=== PATIENT | female | born 1935 | race Caucasian/White ===

== ENCOUNTER 2016-11-02 17:45 | Emergency (ER) | payer MEDICARE ==
[~2016-11-02] VITALS: Ht 162.6 cm; Wt 59.4 kg
[~2016-11-02 17:45] MED LIST: BRIMONIDINE OD; CALCARB PO; CALCITONIN INH; COQ-10 PO; ENAL5TAB PO; FERR325T OR; FLAG500T OR; FLON0.05 INH; INDAPAMIDE PO; LANO0.1211 PO; LEVA500T OR; LOPR50TA PO; LOZOL PO; MULTIVIT OR; NEUR600T PO; OMEGA 3 FISH OIL PO; OMEP20TA7 PO; POTA-77 PO; PRIL20CA OR; VIT D PO; VITA500T PO; XALATAN OPHT OU
[2016-11-02] MEDS ORDERED: ACETAMINOPHEN TAB 650MG DOSE (2X325MG) PO ONE (18:30)
[2016-11-02 18:46] LABS: BASO % 0.3 % (0.0-1.0); EOS # 0.1 K/mm3 (0.0-0.50); EOS % 1.3 % (0.0-3.0); LARGE UNSTAINED CELL # 0.1 K/mm3 (0.0-0.4); LARGE UNSTAINED CELL % 0.9 % (0.0-4.0); LYMPH # 1.4 K/mm3 (1.5-4.5); LYMPH % 14.4 % (24.0-44.0); MEAN CORPUSCULAR HEMOGLOBIN 32.3 pg (27.0-33.0); MEAN CORPUSCULAR HGB CONC 35.1 g/dl (32.0-36.5); MEAN CORPUSCULAR VOLUME 92.1 fl (80.0-96.0); MONO # 0.6 K/mm3 (0.0-0.8); MONO % 6.6 % (0.0-5.0); NEUTROPHILS # 7.1 K/mm3 (1.8-7.7); NEUTROPHILS % 76.5 % (36.0-66.0); PLATELET COUNT, AUTOMATED 171 k/mm3 (150-450); RED CELL DISTRIBUTION WIDTH 12.6 % (11.5-14.5); WHITE BLOOD COUNT 9.2 K/mm3 (4.0-10.0)
--- NOTE | 2016-11-02 18:57 | REP ---
Clinical: Trauma . Findings: Age-related atrophy and microvascular ischemic changes are appreciated. The ventricles and sulci are symmetric. Serna-white differentiation is maintained. There is no evidence for acute intracranial hemorrhage, mass/mass effect, pathology or infarction. No extra-axial fluid collection. Calvarium is intact. Paranasal sinuses and mastoid air cells are clear. Impression: Age related atrophy and microvascular ischemic changes. No acute intracranial trauma, hemorrhage, infarction, or mass/mass effect. Signed by Josse Ramos MD 11/02/2016 06:48 P
[2016-11-02 19:27] LABS: ANION GAP 7 MEQ/L (8-16); BLOOD UREA NITROGEN 16 MG/DL (7-18); CALCIUM LEVEL 7.6 MG/DL (8.8-10.2); CARBON DIOXIDE LEVEL 32 MEQ/L (21-32); CHLORIDE LEVEL 96 MEQ/L (98-107); CREATININE FOR GFR 0.88 MG/DL (0.55-1.02); GLOMERULAR FILTRATION RATE > 60.0 (>32); GLUCOSE, FASTING 162 MG/DL (83-110); POTASSIUM SERUM 3.1 MEQ/L (3.5-5.1); SODIUM LEVEL 135 MEQ/L (136-145)
[2016-11-02] MEDS ORDERED: KEFL500C7 PO (20:39)
[2016-11-02] MEDS ORDERED: CEPHALEXIN 500 MG CAP PO ONE (21:00)
[2016-11-02] MEDS ORDERED: POTASSIUM CHLORIDE 10 MEQ SR TABLET PO ONE (21:00)
[2016-11-02 21:09] VITALS: BP 136/75
[2016-11-03] MEDS ORDERED: DEPA250T32 PO (01:22)
[2016-11-03] MEDS ORDERED: BETA2500 PO (01:22)
[2016-11-03] MEDS ORDERED: INDA125TA PO (01:22)
[2016-11-03] MEDS ORDERED: LATA5OPD OU (01:22)
[2016-11-03] MEDS ORDERED: ENAL5TAB PO (01:22)
[2016-11-03] MEDS ORDERED: KEFL500C7 PO (01:22)
[2016-11-03] MEDS ORDERED: CO Q1CAP PO (01:22)
[2016-11-03] MEDS ORDERED: GABA600T PO (01:22)
[2016-11-03] MEDS ORDERED: DIGO0.127 PO (01:22)
[2016-11-03] MEDS ORDERED: CYCL10TA PO (01:22)
[2016-11-03] MEDS ORDERED: FISH100049 PO (01:22)
[2016-11-03] MEDS ORDERED: BRIM1OPD OU (01:22)
[2016-11-03] MEDS ORDERED: OMEP20CA3 PO (01:22)
[2016-11-03] MEDS ORDERED: POTA99TA PO (01:22)
[2016-11-03] MEDS ORDERED: ALPH100C PO (01:22)
[2016-11-03] MEDS ORDERED: ASPI81TA21 PO (01:22)
[2016-11-03] MEDS ORDERED: METO50TA2 PO (01:22)
--- NOTE | 2016-11-03 07:23 | REP ---
Clinical: Trauma. Technique: Frontal view of the pelvis with neutral and frog lateral views of the right hip. Findings: Evidence of prior fixation involving the lumbosacral spine and pelvis. No acute fracture dislocation. Hip joints demonstrate symmetric age-related changes. Impression: Age-related changes. No acute fracture or dislocation identified. Signed by Josse Ramos MD 11/03/2016 07:15 A
== END 2016-11-02 21:11 | disposition home or self-care (01) ==
LOC: EDBD → M ED 18:58
DX: S70.01XA Contusion of right hip, initial encounter (principal); S00.03XA Contusion of scalp, initial encounter; W01.198A Fall on same level from slipping, tripping and stumbling with subsequent striking against other object, initial encounter; Y92.094 Garage of other non-institutional residence as the place of occurrence of the external cause; Y93.89 Activity, other specified; Y99.8 Other external cause status; E87.6 Hypokalemia; R30.0 Dysuria; E11.9 Type 2 diabetes mellitus without complications; E78.9 Disorder of lipoprotein metabolism, unspecified; G47.30 Sleep apnea, unspecified; Z79.899 Other long term (current) drug therapy; Z79.82 Long term (current) use of aspirin; Z91.018 Allergy to other foods; Z91.09 Other allergy status, other than to drugs and biological substances; Z85.3 Personal history of malignant neoplasm of breast

== ENCOUNTER 2016-11-02 22:59 | Observation (INO) | payer MEDICARE ==
[~2016-11-02] VITALS: Ht 162.6 cm; Wt 61.1 kg
[~2016-11-02 22:59] MED LIST changes: +BRIMONIDINE 0.1% OPHTH SOLN 5 ML OU SCH; +KEFL500C17 PO
[2016-11-03] VITALS (9 sets, daily range): BP systolic 101–156; BP diastolic 57–81
[2016-11-03] MEDS ORDERED: ACETAMINOPHEN TAB 650MG DOSE (2X325MG) PO PRN (00:45)
[2016-11-03] MEDS ORDERED: ONDANSETRON 4MG/2ML VIAL (J2405) IV PRN (00:45)
[2016-11-03] MEDS ORDERED: POTA99TA PO (01:22)
[2016-11-03] MEDS ORDERED: ENAL5TAB PO (01:22)
[2016-11-03] MEDS ORDERED: INDA125TA PO (01:22)
[2016-11-03] MEDS ORDERED: BRIM1OPD OU (01:22)
[2016-11-03] MEDS ORDERED: LATA5OPD OU (01:22)
[2016-11-03] MEDS ORDERED: GABA600T PO (01:22)
[2016-11-03] MEDS ORDERED: CYCL10TA PO (01:22)
[2016-11-03] MEDS ORDERED: FISH100049 PO (01:22)
[2016-11-03] MEDS ORDERED: ALPH100C PO (01:22)
[2016-11-03] MEDS ORDERED: CO Q100C PO (01:22)
[2016-11-03] MEDS ORDERED: OMEP20CA3 PO (01:22)
[2016-11-03] MEDS ORDERED: ASPI81TA21 PO (01:22)
[2016-11-03] MEDS ORDERED: KEFL500C17 PO (01:22)
[2016-11-03] MEDS ORDERED: BETA2500 PO (01:22)
[2016-11-03] MEDS ORDERED: DIGO0.127 PO (01:22)
[2016-11-03] MEDS ORDERED: DEPA250T32 PO (01:22)
[2016-11-03] MEDS ORDERED: METO50TA7 PO (01:22)
[2016-11-03] MEDS: NS 1,000 ML IV SCH ×3 (02:45→22:30)
--- NOTE | 2016-11-03 04:13 | HPEPDOC ---
General Date of Admission November 02, 2016 at 23:33 Primary Care Physician: RENEE CHRISTIE MD [facility] Attending Physician: JOSEPH DUBOIS MD Chief Complaint The patient is a 81-year-old female admitted with a reason for visit of Vasovagal Near Syncope. Source: Patient, RN notes reviewed, Old records Exam Limitations: No limitations Timing/Duration: This evening Associated Symptoms: Cough (nonproductive), Headaches (frontal), Shortness of breath (orthopnea) History of Present Illness Ms. Reyes is an 81-year-old female who presents to [facility]'s emergency Department with near syncope. Past medical history significant for hypertension, gastroesophageal reflux disease, history of atrial fibrillation, migraine, neuropathy, glaucoma, osteoarthritis, history of breast cancer. Patient was previously evaluated in the emergency department earlier this evening secondary to a fall. Patient reports that she was attempting to close the garage door and had pulled on the rope to pull the garage door down and it broke causing her to fall to the ground. She states that she hit her head, but did not lose consciousness. She felt "stunned". Reports that her hip was bruised and that her head was sore. Presented to the emergency department at that time and eventually a right hip x-ray was performed which was negative. Patient was discharged from the emergency department and returned home. Once arriving home patient was unloading the car and describes "walking in a fog". States that she couldn't navigate and felt that her "brain was full of clouds " . Initially thought it was because she had hit her head and then she had concerns about a stroke. Reports that she could hear what people were saying around her, but could not respond. Her called 911. During that time her neighbor, who is a synthetic filament spinner, came over and evaluated patient. Patient subsequently presented to the emergency department for the second time. Review of systems is positive for the following: frontal headache, chronic blurry vision, sinus pressure which is new, nonproductive cough, orthopnea, constipation, chronic back pain, and joint pain. Besides review of systems listed above all other review of systems are negative. Hospitalist service was consulted and patient was admitted for further medical management. Home Medications Scheduled (Co Q-10) 100 Mg Cap, 100 MG PO DAILY, (Reported) (Beta Carotene) 25,000 Unit Cap, 25,000 UNIT PO DAILY, (Reported) Aspirin (Aspir-Low) 81 Mg Tab, 81 MG PO DAILY, (Reported) Brimonidine Tartrate 0.1% (Alphagan P) 100 Drop/5 Ml Soln, 1 DROP OU BID, ( Reported) Cyclobenzaprine HCl (Cyclobenzaprine HCl) 10 Mg Tab, 10 MG PO TID, (Reported) Digoxin (Digox) 0.125 Mg Tab, 0.125 MG PO DAILY, (Reported) Divalproex Sodium (Depakote) 250 Mg Tab, 250 MG PO BID, (Reported) Enalapril Maleate (Enalapril Maleate) 5 Mg Tab, 5 MG PO DAILY, (Reported) Fish Oil (Fish Oil 1000 mg) 1 Cap Cap, 1 CAP PO DAILY, (Reported) Gabapentin (Gabapentin) 600 Mg Tab, 600 MG PO QID, (Reported) Indapamide (Indapamide) 1.25 Mg Tab, 1.25 MG PO DAILY, (Reported) Latanoprost (Latanoprost) 50 Drop/2.5 Ml Soln, 1 DROP OU QHS, (Reported) Lipoic Acid (Thioctic Acid) (Alpha Lipoic Acid) 100 Mg Cap, 100 MG PO DAILY, ( Reported) Metoprolol Tartrate (Metoprolol Tartrate) 50 Mg Tab, 50 MG PO DAILY, (Reported) Omeprazole (Omeprazole) 20 Mg Cap, 20 MG PO DAILY, (Reported) Allergies Coded Allergies: Nitrates, Organic (Verified Allergy, Unknown, 11/02/16) Nitrofurantoin (Verified Allergy, Unknown, 11/02/16) Papaya Enzyme (Verified Allergy, Unknown, 11/02/16) Statins (Verified Allergy, Unknown, 11/02/16) TAPE (Verified Allergy, Unknown, SURGICAL TAPE, 11/02/16) Past Medical History Medical History 1. Hypertension 2. Gastroesophageal reflux disease 3. History of atrial fibrillation 4. Migraine 5. Neuropathy 6. Glaucoma 7. Osteoarthritis 8. History of breast cancer Surgical History 1. Spinal surgeries 2. Double mastectomy, 2002 3. Total hysterectomy, age 49 4. Colonoscopy 5. 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 Dyspnea, Edema Gastrointestinal: Reports: Constipation, Denies: Nausea, Vomiting, Abdominal Pain, Diarrhea, Melena, Hematochezia Genitourinary: Denies: Dysuria, Frequency, Incontinence, Hematuria, Retention Hematologic: Denies: Bruising Musculoskeletal: Reports: Back Pain, Joint Pain Neurological: Denies: Numbness Physical Examination General Exam: Positive: Alert, Cooperative, No Acute Distress Eye Exam: Positive: PERRLA, Conjunctiva & lids normal, EOMI, Negative: Sclera icteric, Ptosis ENT Exam: Positive: Atraumatic, Mucous membr. moist/pink, Pharynx Normal, Tongue Midline, Nares Patent, Negative: Pharyngeal Edema Neck Exam: Positive: Supple, Other (without carotid bruits), Negative: JVD, thyromegaly, Lymphadenopathy Chest Exam: Positive: Clear to auscultation, Normal air movement Heart Exam: Positive: Rate Normal, Regular Rhythm, Normal S1, Normal S2, Negative: Gallops, Murmurs, Rubs Telemetry: Positive: No significant arrhythmia Abdomen Exam: Positive: BS Hypoactive, Soft, Negative: Tenderness, Hepatospenomegaly, Mass Extremity Exam: Positive: Normal pulses, Negative: Clubbing, Cyanosis, Edema, Tenderness, Swelling Skin Exam: Positive: Nl turgor and temperature, Negative: Rash, Lesion Neuro Exam: Positive: Strength at 5/5 X4 ext, Cranial Nerves 3-12 NL Vital Signs Vital Signs Date Time Temp Pulse Resp B/P (MAP) Pulse Ox O2 Delivery O2 Flow Rate FiO2 11/03/16 02:24 63 156/75 (102) 64 139/81 (100) 75 109/71 (84) 11/03/16 01:50 96.7 20 96 Room Air Height (in): 64 Weight (kg): 61.1 BMI (kg): 23.1 Laboratory Data Labs 24H Laboratory Tests 2 11/02/16 23:24: Total Creatine Kinase 163, Creatine Kinase MB 2.2, Creatine Kinase MB Relative Index 1.34, Troponin I 0.02, Valproic Acid (Depakene) Level 52.4 Assessment/Plan Ms. Reyes is an 81-year-old female with a past medical history significant for hypertension, gastroesophageal reflux disease, history of atrial fibrillation, migraine, neuropathy, glaucoma, osteoarthritis, history of breast cancer who presents with near syncope likely related to orthostatic hypotension. Plan / VTE VTE Prophylaxis Ordered?: Yes (antiembolic stockings) Plan Plan Near syncope Orthostatic vital signs confirm orthostatic hypotension. Started normal saline at 100mLs per hour. Obtaining cardiac markers, TSH, magnesium. Performing neurological checks and orthostatic vital signs. Obtaining EKG, echocardiogram. Order physical therapy. Obtain Depakote level. Hypertension Continue current home medication regimen with hold parameters. Constipation Start patient on Colace and Dulcolax. Glaucoma Continue patient on her medication regimen. Disposition Admit to: Progressive care unit Anticipated hospitalization: Observation Attending: Dr. Roland IVF: Initiate (NS @ 100 mLs per hour) Diet: Continue Current (no salt added) Activity: Continue Current Therapy: PT Diagnostics: Check Labs, Repeat Labs in AM, Obtain Cultures Anticipated Discharge: Home [facility] November 03, 2016 04:13 JOSEPH DUBOIS MD November 05, 2016 01:00
[2016-11-03 08:40] LABS: BASO % 0.2 % (0.0-1.0); EOS # 0.1 K/mm3 (0.0-0.50); EOS % 1.2 % (0.0-3.0); LARGE UNSTAINED CELL # 0.1 K/mm3 (0.0-0.4); LARGE UNSTAINED CELL % 1.1 % (0.0-4.0); LYMPH % 14.2 % (24.0-44.0); MEAN CORPUSCULAR HEMOGLOBIN 31.9 pg (27.0-33.0); MEAN CORPUSCULAR HGB CONC 34.5 g/dl (32.0-36.5); MEAN CORPUSCULAR VOLUME 92.4 fl (80.0-96.0); MONO # 0.6 K/mm3 (0.0-0.8); MONO % 8.2 % (0.0-5.0); NEUTROPHILS # 5.1 K/mm3 (1.8-7.7); NEUTROPHILS % 75.1 % (36.0-66.0); PLATELET COUNT, AUTOMATED 150 k/mm3 (150-450); RED CELL DISTRIBUTION WIDTH 12.9 % (11.5-14.5); WHITE BLOOD COUNT 6.8 K/mm3 (4.0-10.0)
[2016-11-03 08:51] LABS: ANION GAP 8 MEQ/L (8-16); BLOOD UREA NITROGEN 12 MG/DL (7-18); CALCIUM LEVEL 7.1 MG/DL (8.8-10.2); CARBON DIOXIDE LEVEL 28 MEQ/L (21-32); CHLORIDE LEVEL 98 MEQ/L (98-107); CREATININE FOR GFR 0.78 MG/DL (0.55-1.02); GLOMERULAR FILTRATION RATE > 60.0 (>32); GLUCOSE, FASTING 158 MG/DL (83-110); MAGNESIUM LEVEL 1.8 MG/DL (1.8-2.4); POTASSIUM SERUM 3.2 MEQ/L (3.5-5.1); SODIUM LEVEL 134 MEQ/L (136-145)
--- NOTE | 2016-11-03 08:53 | ECGEPIP ---
Stationary ECG Study [facility] Test Date: 2016-11-03 Pat Name: CASEY CURIEL Department: Room: 0102 Gender: F Blood Bank Worker: LUIS FELIPE : 1935 Requested By: JOSEPH Baker Order Number: [id number] Reading MD: Delores Alvarado Measurements Intervals [place] Rate: 70 P: 5 [place]: 148 QRS: 20 QRSD: 93 T: 15 QT: 410 QTc: 445 Interpretive Statements SINUS RHYTHM LEFT VENTRICULAR HYPERTROPHY AND ST-T CHANGE PRIOR WITH LAE Electronically Signed On 11-03-2016 8:53:24 EDT by Delores Alvarado
[2016-11-03 09:00] LABS: DIGOXIN LEVEL 0.8 NG/ML (0.5-2.0)
[2016-11-03] MEDS: DOCUSATE SODIUM 100 MG CAP PO SCH ×2 (09:35→22:27)
[2016-11-03] MEDS: DIVALPROEX 250 MG TAB PO SCH ×2 (09:36→22:26)
[2016-11-03] MEDS: GABAPENTIN 300 MG CAP PO SCH ×4 (09:36→22:26)
[2016-11-03] MEDS: ASPIRIN 81 MG ENTERIC TAB PO SCH (09:36)
[2016-11-03] MEDS: OMEPRAZOLE 20 MG CAP PO SCH (09:36)
[2016-11-03] MEDS: METOPROLOL TART 50 MG TAB PO SCH (09:37)
[2016-11-03] MEDS: INDAPAMIDE 1.25MG TABLET PO SCH (09:37)
[2016-11-03] MEDS: DIGOXIN 0.125 MG TAB PO SCH (09:37)
[2016-11-03] MEDS: ENALAPRIL MALEATE 5 MG TAB PO SCH (09:37)
[2016-11-03] MEDS: BISACODYL 5 MG TAB PO SCH (09:43)
--- NOTE | 2016-11-03 10:18 | ECGEPIP ---
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
[2016-11-03] MEDS ORDERED: POTASSIUM CHLORIDE 10 MEQ SR TABLET PO ONE ×2 (12:00→14:00)
[2016-11-03] MEDS: BRIMONIDINE 0.1% OPHTH SOLN 5 ML OU SCH ×2 (12:08→22:27)
[2016-11-03] MEDS ORDERED: LATANOPROST 0.005% OPHTH SOLN 2.5 ML OU SCH (21:00)
[2016-11-04] VITALS: BP 134/74
[2016-11-04 04:00] VITALS: BP 148/77
[2016-11-04 08:00] VITALS: BP 145/90
[2016-11-04] MEDS: INDAPAMIDE 1.25MG TABLET PO SCH (08:18)
[2016-11-04] MEDS: ASPIRIN 81 MG ENTERIC TAB PO SCH (08:18)
[2016-11-04] MEDS: DOCUSATE SODIUM 100 MG CAP PO SCH (08:19)
[2016-11-04 08:20] VITALS: BP 145/90
[2016-11-04] MEDS: METOPROLOL TART 50 MG TAB PO SCH (08:20)
[2016-11-04] MEDS: OMEPRAZOLE 20 MG CAP PO SCH (08:20)
[2016-11-04] MEDS: ENALAPRIL MALEATE 5 MG TAB PO SCH (08:20)
[2016-11-04] MEDS: BISACODYL 5 MG TAB PO SCH (08:20)
[2016-11-04] MEDS: DIGOXIN 0.125 MG TAB PO SCH (08:21)
[2016-11-04] MEDS: DIVALPROEX 250 MG TAB PO SCH (08:21)
[2016-11-04] MEDS: GABAPENTIN 300 MG CAP PO SCH ×2 (08:21→14:08)
[2016-11-04] MEDS: BRIMONIDINE 0.1% OPHTH SOLN 5 ML OU SCH (08:21)
[2016-11-04 09:07] LABS: MEAN CORPUSCULAR HEMOGLOBIN 32.3 pg (27.0-33.0); MEAN CORPUSCULAR HGB CONC 34.8 g/dl (32.0-36.5); MEAN CORPUSCULAR VOLUME 92.7 fl (80.0-96.0); WHITE BLOOD COUNT 6.1 K/mm3 (4.0-10.0)
[2016-11-04 09:38] LABS: ALKALINE PHOSPHATASE 46 U/L (45-117); ALT/SGPT 34 U/L (12-78); ANION GAP 8 MEQ/L (8-16); AST/SGOT 25 U/L (15-37); BILIRUBIN,TOTAL 0.4 MG/DL (0.2-1.0); BLOOD UREA NITROGEN 10 MG/DL (7-18); CALCIUM LEVEL 8.3 MG/DL (8.8-10.2); CARBON DIOXIDE LEVEL 29 MEQ/L (21-32); CHLORIDE LEVEL 102 MEQ/L (98-107); GLOMERULAR FILTRATION RATE > 60.0 (>32); GLUCOSE, FASTING 98 MG/DL (83-110); POTASSIUM SERUM 3.8 MEQ/L (3.5-5.1); SODIUM LEVEL 139 MEQ/L (136-145)
[2016-11-04 12:00] VITALS: BP 127/64
[2016-11-04] MEDS ORDERED: ERTAPENEM SODIUM 1 GM in NS MINI-BAG PLUS 50 ML IV SCH (12:00)
--- NOTE | 2016-11-04 14:49 | DS.PDOC ---
Discharge Summary General Date of Admission November 02, 2016 at 23:33 Date of Discharge 11/04/16 Attending Physician: SHAMAR ALVARES MD Discharge Summary PROCEDURES PERFORMED DURING STAY: None. ADMITTING/DISCHARGE DIAGNOSES: 1. Presyncope secondary to orthostatic hypotension 2. Asymptomatic bacteriuria 3. History of atrial fibrillation 4. Migraine 5. Neuropathy 6. Glaucoma 7. Osteoarthritis 8. History of breast cancer 9. Hypertension 10. Gastroesophageal reflux disease COMPLICATIONS/CHIEF COMPLAINT: Vasovagal Near Syncope. HISTORY OF PRESENT ILLNESS/HOSPITAL COURSE: . This 81-year-old female past medical history fibrillation, hypertension who presents after having fallen while trying to close her neurologist or. The patient states that the rope broke and she had a mechanical fall. Patient initially came to the ED and was discharged home with no fractures noted. The patient then started to develop symptoms consistent of orthostatic hypotension. Patient did have positive orthostatics in the ED. Hydrated and tolerated therapy well. Patient was also evaluated by physical therapy and was cleared for discharge with rolling walker. Patient did have asymptomatically bacteriuria with ESBL in the urine, however patient is asymptomatic. Discussed with Dr. Monte who recommends hold off on antibiotics. DISCHARGE MEDICATIONS: Please see below. ALLERGIES: Please see below. PHYSICAL EXAMINATION ON DISCHARGE: Objective: Vitals: (see below) General: No acute distress, laying comfortably in bed. HEENT: Moist mucous membranes. Neck: No JVD or lymphadenopathy Cardiac: RRR, No murmurs Pulm: Clear to auscultation b/l. No wheezing, rhonchi Abd: NT/ND + BS Ext: No edema or cyanosis. LABORATORY DATA: Please see below. IMAGING: PROGNOSIS: Fair ACTIVITY: As tolerated. DIET: As tolerated DISCHARGE PLAN/DISPOSITION: Home with rolling walker DISCHARGE INSTRUCTIONS: 1. F/u with PCP in 1-2 weeks. DISCHARGE CONDITION: Stable. TIME SPENT ON DISCHARGE: Greater than 30 minutes. Vital Signs/I&Os Vital Signs Date Time Temp Pulse Resp B/P (MAP) Pulse Ox O2 Delivery O2 Flow Rate FiO2 11/04/16 12:00 99.5 61 18 127/64 (85) 93 Room Air I&O- Last 24 Hours up to 6 AM 11/04/16 06:00 Intake Total 1880 ml Output Total 1375 ml Balance 505 ml Laboratory Data Labs 24H Laboratory Tests 2 11/03/16 22:34: Total Creatine Kinase 303H, Creatine Kinase MB 3.7H, Creatine Kinase MB Relative Index 1.22, Troponin I < 0.02 11/04/16 08:45: Anion Gap 8, Glomerular Filtration Rate > 60.0, Blood Urea Nitrogen 10, Creatinine 0.60, Sodium Level 139, Potassium Level 3.8, Chloride Level 102, Carbon Dioxide Level 29, Calcium Level 8.3#L, Aspartate Amino Transf (AST/SGOT) 25, Alanine Aminotransferase (ALT/SGPT) 34, Alkaline Phosphatase 46, Total Bilirubin 0.4, Total Protein 6.0L, Albumin 3.0L, Magnesium Level 2.0, Albumin/ Globulin Ratio 1.00 CBC/BMP Laboratory Tests 11/04/16 08:45 Red Blood Count 3.30 L, Mean Corpuscular Volume 92.7, Mean Corpuscular Hemoglobin 32.3, Mean Corpuscular Hemoglobin Concent 34.8, Red Cell Distribution Width 13.0, Calcium Level 8.3 #L, Aspartate Amino Transf (AST/SGOT ) 25, Alanine Aminotransferase (ALT/SGPT) 34, Alkaline Phosphatase 46, Total Bilirubin 0.4, Total Protein 6.0 L, Albumin 3.0 L Discharge Medications Scheduled (Co Q-10) 100 Mg Cap, 100 MG PO DAILY, (Reported) (Beta Carotene) 25,000 Unit Cap, 25,000 UNIT PO DAILY, (Reported) Aspirin (Aspir-Low) 81 Mg Tab, 81 MG PO DAILY, (Reported) Brimonidine Tartrate 0.1% (Alphagan P) 100 Drop/5 Ml Soln, 1 DROP OU BID, ( Reported) Cyclobenzaprine HCl (Cyclobenzaprine HCl) 10 Mg Tab, 10 MG PO TID, (Reported) Digoxin (Digox) 0.125 Mg Tab, 0.125 MG PO DAILY, (Reported) Divalproex Sodium (Depakote) 250 Mg Tab, 250 MG PO BID, (Reported) Enalapril Maleate (Enalapril Maleate) 5 Mg Tab, 5 MG PO DAILY, (Reported) Fish Oil (Fish Oil 1000 mg) 1 Cap Cap, 1 CAP PO DAILY, (Reported) Gabapentin (Gabapentin) 600 Mg Tab, 600 MG PO QID, (Reported) Indapamide (Indapamide) 1.25 Mg Tab, 1.25 MG PO DAILY, (Reported) Latanoprost (Latanoprost) 50 Drop/2.5 Ml Soln, 1 DROP OU QHS, (Reported) Lipoic Acid (Thioctic Acid) (Alpha Lipoic Acid) 100 Mg Cap, 100 MG PO DAILY, ( Reported) Metoprolol Tartrate (Metoprolol Tartrate) 50 Mg Tab, 50 MG PO DAILY, (Reported) Omeprazole (Omeprazole) 20 Mg Cap, 20 MG PO DAILY, (Reported) Allergies Coded Allergies: Nitrates, Organic (Verified Allergy, Unknown, 11/02/16) Nitrofurantoin (Verified Allergy, Unknown, 11/02/16) Papaya Enzyme (Verified Allergy, Unknown, 11/02/16) Statins (Verified Allergy, Unknown, 11/02/16) TAPE (Verified Allergy, Unknown, SURGICAL TAPE, 11/02/16) SHAMAR ALVARES MD November 04, 2016 14:49
[2017-04-08] MEDS ORDERED: DEPA250T32 PO (18:11)
[2017-04-08] MEDS ORDERED: ALPH0.156 OU (18:13)
[2017-04-27] MEDS ORDERED: THIA100TA PO (08:25)
[2017-04-27] MEDS ORDERED: FOLI1TAB4 PO (08:25)
[2017-04-27] MEDS ORDERED: VITMTA PO (08:25)
== END 2016-11-04 14:45 | disposition home or self-care (01) ==
LOC: EDBD 22:59 → M ED 23:32 → EEVIPCON 23:33 → M ED INP 23:33 → M MS4PR 11-03 16:15
PROVIDERS: ADMIT General Practice; ATTEND Internal Medicine
DX: I95.1 Orthostatic hypotension (principal); R78.81 Bacteremia; G43.909 Migraine, unspecified, not intractable, without status migrainosus; G62.9 Polyneuropathy, unspecified; H40.9 Unspecified glaucoma; M19.90 Unspecified osteoarthritis, unspecified site; I48.91 Unspecified atrial fibrillation; Z85.3 Personal history of malignant neoplasm of breast; I10 Essential (primary) hypertension; K21.9 Gastro-esophageal reflux disease without esophagitis; K59.00 Constipation, unspecified; S70.01XA Contusion of right hip, initial encounter; S00.03XA Contusion of scalp, initial encounter; W01.198A Fall on same level from slipping, tripping and stumbling with subsequent striking against other object, initial encounter; Y92.094 Garage of other non-institutional residence as the place of occurrence of the external cause; Y93.89 Activity, other specified; Y99.8 Other external cause status; E87.6 Hypokalemia; R30.0 Dysuria; E11.9 Type 2 diabetes mellitus without complications; E78.9 Disorder of lipoprotein metabolism, unspecified; G47.30 Sleep apnea, unspecified; Z79.899 Other long term (current) drug therapy; Z79.82 Long term (current) use of aspirin; Z88.8 Allergy status to other drugs, medicaments and biological substances; Z91.018 Allergy to other foods; Z91.09 Other allergy status, other than to drugs and biological substances; Z87.440 Personal history of urinary (tract) infections
CPT/HCPCS: 36415; 70450; 73502; 80048; 80053; 80162; 80164; 81001; 82550; 82553; 83735; 84443; 84484; 85025; 85027; 87088; 87186; 93005; 96360; 96361; 97161; 99283; 99284; G0378

== ENCOUNTER → 2016-11-17 | Outpatient (CLI) | payer MEDICARE ==
[~2016-11-17] MED LIST changes: +ALPH100C PO; +ASPI81TA21 PO; +BETA2500 PO; +BRIM1OPD OU; -BRIMONIDINE 0.1% OPHTH SOLN 5 ML OU SCH; +CO Q1CAP PO; +CYCL10TA PO; +DEPA250T32 PO; +DIGO0.127 PO; +FISH100049 PO; +GABA600T PO; +INDA125TA PO; -KEFL500C17 PO; +KEFL500C7 PO; +LATA5OPD OU; +METO50TA2 PO; +OMEP20CA3 PO; +POTA99TA PO
--- NOTE | 2016-11-17 12:22 | REP ---
AP AND LATERAL SKULL, TWO VIEWS: HISTORY: Foreign body. There is no acute fracture or bone lesion. The sinuses are clear. There is no radiopaque foreign body. IMPRESSION: There is no radiopaque foreign body. Signed by Perry Kidd MD 11/17/2016 12:22 P
== END ==
LOC: M LAB 11:08
PROVIDERS: ATTEND Psychiatry & Neurology Neurology
DX: Z01.818 Encounter for other preprocedural examination (principal)

== ENCOUNTER 2017-02-24 15:34 | Inpatient (IN) | payer MEDICARE ==
[~2017-02-24] VITALS: Ht 162.6 cm; Wt 59.3 kg
[~2017-02-24 15:34] MED LIST changes: +CO Q100C PO; -CO Q1CAP PO; +KEFL500C17 PO; -KEFL500C7 PO; -METO50TA2 PO; +METO50TA7 PO
[2017-02-24] MEDS ORDERED: DIVA500T3 PO (16:09)
[2017-02-24] MEDS ORDERED: DEPA250T32 PO (16:09)
[2017-02-24] MEDS ORDERED: OXYB10TA PO (16:09)
[2017-02-24] MEDS ORDERED: CALC600T57 PO (16:09)
[2017-02-24] MEDS ORDERED: POTA99TA PO (16:09)
[2017-02-24 16:48] LABS: BASO % 0.5 % (0.0-1.0); EOS # 0.2 K/mm3 (0.0-0.50); LARGE UNSTAINED CELL # 0.1 K/mm3 (0.0-0.4); LARGE UNSTAINED CELL % 1.8 % (0.0-4.0); LYMPH # 1.4 K/mm3 (1.5-4.5); LYMPH % 18.6 % (24.0-44.0); MEAN CORPUSCULAR HEMOGLOBIN 31.5 pg (27.0-33.0); MEAN CORPUSCULAR HGB CONC 34.4 g/dl (32.0-36.5); MEAN CORPUSCULAR VOLUME 91.5 fl (80.0-96.0); MONO # 0.6 K/mm3 (0.0-0.8); MONO % 8.6 % (0.0-5.0); NEUTROPHILS # 5.1 K/mm3 (1.8-7.7); NEUTROPHILS % 68.5 % (36.0-66.0); PLATELET COUNT, AUTOMATED 167 k/mm3 (150-450); RED CELL DISTRIBUTION WIDTH 13.9 % (11.5-14.5); WHITE BLOOD COUNT 7.4 K/mm3 (4.0-10.0)
[2017-02-24 16:54] LABS: INR 0.93
[2017-02-24 16:55] LABS: ANION GAP 9 MEQ/L (8-16); BLOOD UREA NITROGEN 22 MG/DL (7-18); CALCIUM LEVEL 8.7 MG/DL (8.8-10.2); CARBON DIOXIDE LEVEL 30 MEQ/L (21-32); CHLORIDE LEVEL 99 MEQ/L (98-107); CREATININE FOR GFR 0.95 MG/DL (0.55-1.02); GLOMERULAR FILTRATION RATE > 60.0 (>32); GLUCOSE, FASTING 91 MG/DL (83-110); POTASSIUM SERUM 3.7 MEQ/L (3.5-5.1); SODIUM LEVEL 138 MEQ/L (136-145)
--- NOTE | 2017-02-24 17:01 | REP ---
CT Head without contrast HISTORY: Infarction COMPARISON: 11/02/2016 Areas of decreased attenuation are present in the periventricular white matter. This represents small-vessel ischemic disease. There is no intraparenchymal hemorrhage, acute infarct, mass or midline shift. The ventricular system and cortical sulci as well as subarachnoid space in the posterior fossa are dilated consistent with moderate volume loss. There is no extra cerebral collection. There is no fracture. The visualized sinuses are clear. IMPRESSION: 1. Small vessel ischemic disease. 2. Moderate volume loss. Signed by Perry Kidd MD 02/24/2017 04:53 P
--- NOTE | 2017-02-24 17:14 | REP ---
Clinical: Cerebrovascular accident . Comparison: 06/08/2013 . Findings: The mediastinum and cardiac silhouette are stable and within normal limits for portable technique. The lung cortez are clear without acute consolidation, effusion, or pneumothorax. Skeletal structures are intact. Evidence for prior right axillary node dissection. Impression: No acute cardiopulmonary process appreciated. Signed by Josse Ramos MD 02/24/2017 05:06 P
[2017-02-24] MEDS ORDERED: LevoFLOXacin IV 500 MG in APPROPRIATE DILUENT 1 EA IV ONE (18:15)
--- NOTE | 2017-02-24 18:32 | ECGEPIP ---
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
[2017-02-24] MEDS ORDERED: ACETAMINOPHEN TAB 650MG DOSE (2X325MG) PO PRN (20:00)
[2017-02-24] MEDS ORDERED: ONDANSETRON 4MG/2ML VIAL (J2405) IV PRN (20:00)
[2017-02-24] MEDS ORDERED: CYCLOBENZAPRINE 10 MG TAB PO PRN (20:00)
--- NOTE | 2017-02-24 20:10 | HPEPDOC ---
General Date of Admission 02/24/17 Attending Physician: INDU HANSON MD Chief Complaint The patient is a 81-year-old female admitted with a reason for visit of WEAK. History of Present Illness 81-year-old female with past medical history of hypertension, GERD, atrial fibrillation not on anticoagulation, and neuropathy presents to the ER with a chief complaint of weakness, and dysuria. The patient states that over the last 3-4 days she has felt generalized weakness and increased frequency in urination , suprapubic tenderness, and dysuria. In addition, the patient states that today she was going to the bathroom, and as per the patient's the patient was unable to get up from the toilet as her knees were weak. According to the staff, the patient's has been concerned about the patient's declining functional status for several months now. Of note, the patient was recently admitted to the hospital back in October 2016 and was discharged home with a rolling walker. However, according to the patient's the patient's functional status has continued to decline, and he also notes that she appears to be more confused and is concerned of worsening dementia. At this time, the patient denies any acute complaints of fevers, chills, chest pain, palpitations , shortness of breath, abdominal pain, or any nausea/vomiting/diarrhea. In the ER, the patient was noted to be afebrile, and without a white blood cell count, however her urinalysis and clinical presentation is suggestive of a urinary tract infection. The patient will be admitted under the hospitalist service for further evaluation and management of urinary tract infection and generalized weakness. Home Medications Scheduled (Co Q-10) 100 Mg Cap, 100 MG PO DAILY, (Reported) (Calcium + D3 600-200 mg-Unit) 1 Tab Tab, 1 TAB PO DAILY, (Reported) Aspirin (Aspir-Low) 81 Mg Tab, 81 MG PO DAILY, (Reported) Brimonidine Tartrate 0.1% (Alphagan P) 100 Drop/5 Ml Soln, 1 DROP OU BID, ( Reported) Digoxin (Digox) 0.125 Mg Tab, 0.125 MG PO DAILY, (Reported) Divalproex Sodium (Depakote) 250 Mg Tab, 250 MG PO QAM, (Reported) Divalproex Sodium (Divalproex Sodium Dr) 500 Mg Tab, 500 MG PO QHS, (Reported) Enalapril Maleate (Enalapril Maleate) 5 Mg Tab, 5 MG PO DAILY, (Reported) Fish Oil (Fish Oil 1000 mg) 1 Cap Cap, 1 CAP PO DAILY, (Reported) Gabapentin (Gabapentin) 600 Mg Tab, 600 MG PO QID, (Reported) Indapamide (Indapamide) 1.25 Mg Tab, 1.25 MG PO DAILY, (Reported) Latanoprost (Latanoprost) 50 Drop/2.5 Ml Soln, 1 DROP OU QHS, (Reported) Metoprolol Tartrate (Metoprolol Tartrate) 50 Mg Tab, 50 MG PO DAILY, (Reported) Omeprazole (Omeprazole) 20 Mg Cap, 20 MG PO DAILY, (Reported) Oxybutynin Chloride (Oxybutynin Chloride ER) 10 Mg Tab, 10 MG PO QHS, (Reported) Potassium (Potassium) 99 Mg Tab, 99 MG PO BID, (Reported) Scheduled PRN Cyclobenzaprine HCl (Cyclobenzaprine HCl) 10 Mg Tab, 10 MG PO TID PRN for SPASMS , (Reported) Allergies Coded Allergies: Nitrates, Organic (Verified Allergy, Unknown, 02/24/17) Nitrofurantoin (Verified Allergy, Unknown, 02/24/17) Papaya Enzyme (Verified Allergy, Unknown, 02/24/17) Statins (Verified Allergy, Unknown, 02/24/17) TAPE (Verified Allergy, Unknown, SURGICAL TAPE, 02/24/17) Past Medical History Medical History As noted in HPI. Surgical History 1. Spinal surgeries 2. Double mastectomy, 2002 3. Total hysterectomy, age 49 4. Colonoscopy 5. Upper endoscopy Family History Significant Family History: No pertinent family hx Social History * Smoker: Denies Alcohol: Denies Drugs: denies Lives at home with her , ambulates with a rolling walker. Review of Symptoms Other systems 10 point review of systems negative unless otherwise specified in HPI. Physical Examination General Exam: Positive: Alert, Cooperative, No Acute Distress, Other (vision oriented to person, place, but not time) ENT Exam: Positive: Atraumatic, Mucous membr. moist/pink Neck Exam: Negative: JVD Chest Exam: Positive: Clear to auscultation, Normal air movement Heart Exam: Positive: Irregular Rhythm, Normal S1, Normal S2 Telemetry: Positive: Atrial fibrillation Abdomen Exam: Positive: Soft, Negative: Tenderness Extremity Exam: Positive: Swelling (1+ pitting edema lower extremities bilaterally), Negative: Tenderness Vital Signs Vital Signs Date Time Temp Pulse Resp B/P (MAP) Pulse Ox O2 Delivery O2 Flow Rate FiO2 02/24/17 18:55 80 122/72 (89) 02/24/17 18:40 96 02/24/17 15:43 99.1 18 Room Air Laboratory Data Labs 24H Laboratory Tests 2 02/24/17 15:47: White Blood Count 7.4, Red Blood Count 4.93, Hemoglobin 15.5, Hematocrit 45.1, Mean Corpuscular Volume 91.5, Mean Corpuscular Hemoglobin 31.5, Mean Corpuscular Hemoglobin Concent 34.4, Red Cell Distribution Width 13.9, Platelet Count 167, Neutrophils (%) (Auto) 68.5H, Lymphocytes (%) (Auto) 18.6L, Monocytes (%) (Auto) 8.6H, Eosinophils (%) (Auto) 2.0, Basophils (%) (Auto) 0.5 , Neutrophils # (Auto) 5.1, Lymphocytes # (Auto) 1.4L, Monocytes # (Auto) 0.6, Eosinophils # (Auto) 0.2, Basophils # (Auto) 0.0, Large Unclassified Cells % 1.8 , Large Unclassified Cells # 0.1, Prothrombin Time 12.5, Prothromb Time International Ratio 0.93, Activated Partial Thromboplast Time 27.6, Anion Gap 9 , Glomerular Filtration Rate > 60.0, Blood Urea Nitrogen 22H, Creatinine 0.95, Sodium Level 138, Potassium Level 3.7, Chloride Level 99, Carbon Dioxide Level 30, Calcium Level 8.7L, Total Creatine Kinase 216H, Creatine Kinase MB 5.8H, Creatine Kinase MB Relative Index 2.68, Troponin I 0.05 02/24/17 17:01: Bedside Glucose (Misc Panel) 79L 02/24/17 17:39: Urine Appearance CLOUDYH, Urine Color YELLOW, Urine pH 6.0, Urine Specific Hunt 1.011, Urine Protein NEGATIVE, Urine Glucose (UA) NEGATIVE, Urine Ketones NEGATIVE, Urine Urobilinogen 0.2, Urine Bilirubin NEGATIVE, Urine Leukocyte Esterase 3+H, Urine Blood 2+H, Urine Nitrite POSITIVE, Urine WBC (Auto ) TNTCH, Urine RBC (Auto) 10H, Urine Hyaline Casts (Auto) 0, Urine Bacteria ( Auto) 1+H, Urine Squamous Epithelial Cells 0, Urine Sperm (Auto) CBC/BMP Laboratory Tests 02/24/17 15:47 Red Blood Count 4.93, Mean Corpuscular Volume 91.5, Mean Corpuscular Hemoglobin 31.5, Mean Corpuscular Hemoglobin Concent 34.4, Red Cell Distribution Width 13.9 , Neutrophils (%) (Auto) 68.5 H, Lymphocytes (%) (Auto) 18.6 L, Monocytes (%) ( Auto) 8.6 H, Eosinophils (%) (Auto) 2.0, Basophils (%) (Auto) 0.5, Neutrophils # (Auto) 5.1, Lymphocytes # (Auto) 1.4 L, Monocytes # (Auto) 0.6, Eosinophils # (Auto) 0.2, Basophils # (Auto) 0.0, Calcium Level 8.7 L, Total Creatine Kinase 216 H Plan / VTE VTE Prophylaxis Ordered?: Yes Plan Plan Urinary tract infection The patient's urinalysis and clinical presentation consistent with urinary tract infection The patient has been started on Invanz, based on her previous urine culture susceptibilities obtained in October 2016. The patient is afebrile, with a normal white blood cell count We will continue to monitor the patient's clinical condition Generalized weakness, deconditioning It appears the patient's functional status has been declining for several months now The patient's , lives with her at home, and is concerned about his ability to take care of her Physical therapy consulted for functional optimization PFS consulted for possible addition of home services versus need for placement Atrial fibrillation, stable Continue digoxin, metoprolol Patient not on anticoagulation Hypertension, stable Continue current regimen GERD Continue PPI Neuropathy Continue gabapentin DVT Prophylaxis Lovenox SC The patient will be admitted under the service of Dr. Hanson, who will begin to follow the patient on 02/25/17 at 7 AM. JAEL ROGERS MD Feb 24, 2017 20:09
[2017-02-24] MEDS ORDERED: ERTAPENEM SODIUM 1 GM in NS MINI-BAG PLUS 50 ML IV SCH (21:00)
[2017-02-24 22:25] VITALS: BP 144/71
[2017-02-24] MEDS: DIVALPROEX 500 MG TAB PO SCH (23:33)
[2017-02-24] MEDS: BRIMONIDINE 0.1% OPHTH SOLN 5 ML OU SCH (23:34)
[2017-02-24] MEDS: GABAPENTIN 300 MG CAP PO SCH (23:34)
[2017-02-24] MEDS: LATANOPROST 0.005% OPHTH SOLN 2.5 ML OU SCH (23:34)
[2017-02-24] MEDS: oxyBUTYnin *DITROPAN XL* 5 MG TABCR PO SCH (23:35)
[2017-02-24] MEDS: ERTAPENEM SODIUM 1 GM in NS MINI-BAG PLUS 50 ML IV SCH (23:35)
[2017-02-25 06:28] LABS: MEAN CORPUSCULAR HEMOGLOBIN 30.8 pg (27.0-33.0); MEAN CORPUSCULAR HGB CONC 33.1 g/dl (32.0-36.5); MEAN CORPUSCULAR VOLUME 93.1 fl (80.0-96.0); RED CELL DISTRIBUTION WIDTH 14.2 % (11.5-14.5)
[2017-02-25 06:30] LABS: ANION GAP 11 MEQ/L (8-16); BLOOD UREA NITROGEN 19 MG/DL (7-18); CALCIUM LEVEL 8.2 MG/DL (8.8-10.2); CARBON DIOXIDE LEVEL 27 MEQ/L (21-32); CHLORIDE LEVEL 102 MEQ/L (98-107); CREATININE FOR GFR 0.75 MG/DL (0.55-1.02); GLOMERULAR FILTRATION RATE > 60.0 (>32); GLUCOSE, FASTING 81 MG/DL (83-110); POTASSIUM SERUM 3.3 MEQ/L (3.5-5.1); SODIUM LEVEL 140 MEQ/L (136-145)
[2017-02-25] MEDS: GABAPENTIN 300 MG CAP PO SCH ×4 (09:03→21:20)
[2017-02-25] MEDS: OMEGA-3 1050MG CAPSULE PO SCH (09:03)
[2017-02-25] MEDS: INDAPAMIDE 1.25MG TABLET PO SCH (09:04)
[2017-02-25] MEDS: ASPIRIN 81 MG ENTERIC TAB PO SCH (09:04)
[2017-02-25] MEDS: METOPROLOL TART 50 MG TAB PO SCH (09:04)
[2017-02-25] MEDS: OMEPRAZOLE 20 MG CAP PO SCH (09:04)
[2017-02-25] MEDS: ENALAPRIL MALEATE 5 MG TAB PO SCH (09:04)
[2017-02-25] MEDS: DIVALPROEX 250 MG TAB PO SCH (09:05)
[2017-02-25] MEDS: BRIMONIDINE 0.1% OPHTH SOLN 5 ML OU SCH ×2 (09:05→21:21)
[2017-02-25] MEDS: DIGOXIN 0.125 MG TAB PO SCH (09:05)
[2017-02-25] MEDS: ENOXAPARIN 40 MG/0.4 ML SYRINGE (J1650) SC SCH (09:05)
[2017-02-25] MEDS ORDERED: POTASSIUM CHLORIDE 10 MEQ SR TABLET PO ONE (12:45)
[2017-02-25 14:00] VITALS: BP 112/62
--- NOTE | 2017-02-25 16:41 | IPN ---
DATE: 02/25/2017 SUBJECTIVE: This morning, the patient tells me that she is feeling better than she did yesterday. She tells me that she is having less problems with her memory and is less confused. OBJECTIVE: VITAL SIGNS: Temperature 97.0, pulse 54, respiratory rate 18, blood pressure 144/71, O2 saturation 96% on room air. GENERAL: She is a pleasant elderly female laying in bed at a 75 degrees angle, watching television. She does not appear to be in any acute distress whatsoever. She is awake, alert and oriented times three. HEENT: Cranial II through XII are grossly intact. She is wearing reading glasses. She has moist mucous membranes. No elevation of CVP. CARDIOVASCULAR: S1, S2. Regular. She is not bradycardic on my exam. RESPIRATORY: Clear. ABDOMEN: Benign. There is some mild tenderness in the suprapubic area. EXTREMITIES: No clubbing, cyanosis or edema. There is no costovertebral angle (CVA) tenderness. LABORATORY STUDIES: WBC 8.0, hemoglobin 14, platelet count 134. Chemistry panel: Sodium 140, potassium 3.3, chloride 102, bicarbonate 27, BUN 19, creatinine 0.7. Multiple sets of cardiac enzymes are negative. INR is 0.9. Urinalysis is 2+ positive for blood, 3+ positive for leukocyte esterase, 1+ for bacteria and too numerous to count WBCs as well as a few RBCs. No microbiology is drawn. IMAGING: The patient had a chest x-ray that revealed no acute cardiopulmonary process as well as a CT scan of her head which showed small vessel ischemic disease and moderate volume loss. ASSESSMENT AND PLAN: This is an 81-year-old female with metabolic encephalopathy, likely secondary to urinary tract infection. PROBLEMS: 1. Metabolic encephalopathy likely related to urinary tract infection. Her mental status has improved today. Will continue to monitor closely. She seems to be responding quite well to treatment. She is currently on ertapenem IV and based on her previous microbiology culture for extended spectrum beta-lactamase (ESBL), but I will obtain blood culture and urine culture at this time, although the yield may be lower as the patient has received several doses of antibiotics. Fosfomycin is a potential by mouth (p.o.) option as well. 2. Generalized weakness and deconditioning. As per the patient, the patient has had a slow decline over the last several months with what they believe to be dementia. There is concern about ability to take care of her any further. Will continue to monitor her closely and see how she progresses over the next several days if she is well enough to return home, if not would consider potential placement. 3. Atrial fibrillation. She is on metoprolol. Not on any anticoagulation, as per her outpatient providers. She is rate controlled with digoxin and metoprolol. 4. Hypertension. Controlled with metoprolol, indapamide. The patient is on enalapril. 5. Neuropathy. Continue with Neurontin. 6. Chronic back pain. Continue with Flexeril. 7. Overactive bladder. Continue with Ditropan. 8. Gastroesophageal reflux disease. Continue with omeprazole. 9. Deep venous thrombosis (DVT) prophylaxis. The patient is on Lovenox. DISPOSITION: Pending improvement in clinical status. Continue to monitor her progress and physical therapy, home versus long-term.
[2017-02-25] MEDS: ERTAPENEM SODIUM 1 GM in NS MINI-BAG PLUS 50 ML IV SCH (21:00)
[2017-02-25] MEDS: DIVALPROEX 500 MG TAB PO SCH (21:00)
[2017-02-25] MEDS: oxyBUTYnin *DITROPAN XL* 5 MG TABCR PO SCH (21:20)
[2017-02-25] MEDS: LATANOPROST 0.005% OPHTH SOLN 2.5 ML OU SCH (21:21)
[2017-02-25 22:00] VITALS: BP 143/74
[2017-02-26 05:57] LABS: MEAN CORPUSCULAR HEMOGLOBIN 32.1 pg (27.0-33.0); MEAN CORPUSCULAR HGB CONC 35.1 g/dl (32.0-36.5); MEAN CORPUSCULAR VOLUME 91.4 fl (80.0-96.0); WHITE BLOOD COUNT 5.2 K/mm3 (4.0-10.0)
[2017-02-26 06:00] VITALS: BP 137/84
[2017-02-26 06:17] LABS: ANION GAP 7 MEQ/L (8-16); BLOOD UREA NITROGEN 16 MG/DL (7-18); CALCIUM LEVEL 8.1 MG/DL (8.8-10.2); CARBON DIOXIDE LEVEL 31 MEQ/L (21-32); CHLORIDE LEVEL 101 MEQ/L (98-107); CREATININE FOR GFR 0.71 MG/DL (0.55-1.02); GLOMERULAR FILTRATION RATE > 60.0 (>32); GLUCOSE, FASTING 94 MG/DL (83-110); POTASSIUM SERUM 3.7 MEQ/L (3.5-5.1); SODIUM LEVEL 139 MEQ/L (136-145)
[2017-02-26 08:42] VITALS: BP 145/75
[2017-02-26] MEDS ORDERED: INFLUENZA VIRUS VACCINE HIGH DOSE 0.5 ML SYRINGE (90662) IM ONE (09:00)
[2017-02-26] MEDS: DIGOXIN 0.125 MG TAB PO SCH (09:00)
[2017-02-26] MEDS: METOPROLOL TART 50 MG TAB PO SCH (09:00)
[2017-02-26] MEDS: ENOXAPARIN 40 MG/0.4 ML SYRINGE (J1650) SC SCH (10:45)
[2017-02-26] MEDS: OMEPRAZOLE 20 MG CAP PO SCH (10:47)
[2017-02-26] MEDS: OMEGA-3 1050MG CAPSULE PO SCH (10:47)
[2017-02-26] MEDS: INDAPAMIDE 1.25MG TABLET PO SCH (10:47)
[2017-02-26] MEDS: GABAPENTIN 300 MG CAP PO SCH ×4 (10:47→21:35)
[2017-02-26] MEDS: DIVALPROEX 250 MG TAB PO SCH (10:47)
[2017-02-26] MEDS: ASPIRIN 81 MG ENTERIC TAB PO SCH (10:48)
[2017-02-26] MEDS: BRIMONIDINE 0.1% OPHTH SOLN 5 ML OU SCH ×2 (10:54→21:36)
[2017-02-26] MEDS: ENALAPRIL MALEATE 5 MG TAB PO SCH (10:54)
[2017-02-26 14:05] VITALS: BP 145/79
--- NOTE | 2017-02-26 20:23 | IPN ---
DATE: 02/26/2017 SUBJECTIVE: This morning the patient tells me she thinks she is feeling better. Has a little bit more strength than she did yesterday, but she has no fevers, chills, chest pain, shortness of breath. She denies any abdominal pain or dysuria. OBJECTIVE: VITAL SIGNS: Temperature 98, pulse 58, respiratory rate 14, blood pressure (BP) 145/75, oxygen saturation 95% on room air. GENERAL: She is a very pleasant, elderly female sitting up in bed. She is no acute distress. HEENT: She is wearing glasses. She has moist mucous membranes. No elevation in central venous pressure (CVP). She is awake, alert, oriented times three. CARDIOVASCULAR: S1, S2, regular. RESPIRATORY Clear. ABDOMEN: Benign. EXTREMITIES: No clubbing, cyanosis, or edema. There is no suprapubic tenderness today. LABORATORY STUDIES: WBC 5.2, hemoglobin 13.6, platelet count 139. Chemistry panel: Sodium 139, potassium 3.7, chloride 101, bicarbonate 31, BUN 16, creatinine 0.7. Microbiology: Blood cultures are preliminarily negative. Urine culture is pending. No new imaging. ASSESSMENT AND PLAN: This is an 81-year-old female with metabolic encephalopathy, likely secondary to urinary tract infection. 1. Metabolic encephalopathy related to urinary tract infection. It appears to have resolved. She is awake, alert, oriented times three when I am seeing her this morning. She is currently on intravenous (IV) ertapenem based on previous microbiology cultures for extended-spectrum beta lactamase (ESBL). We have obtained blood cultures and urine cultures, although they are after a couple doses of antibiotics, and as such may they have a lower yield. Patient will continue on this. While she is in the hospital, will keep her on IV antibiotics. If she is stable for dispositioning, likely Tuesday, with a dose of fosfomycin. 2. General weakness and deconditioning. Patient has had a slow decline over the last several months from what is thought to be related to dementia. He is concerned about his ability to take care of her. She is concerned about her ability to return home. We will see how she progresses with her resolving metabolic encephalopathy and have her work with physical therapy on Tuesday. Should she not continue to not be able to take care of herself with assistance, she may end up requiring some acute rehabilitation for fdc. 3. Atrial fibrillation. She is on metoprolol and digoxin. She is rate controlled. She is not on any anticoagulation. Will defer to her outpatient providers. 4. Hypertension, controlled with metoprolol and indapamide as well as enalapril. 5. Neuropathy. She is on Neurontin. 6. Chronic back pain. She is on Flexeril. 7. Overactive bladder. She is on Ditropan. 8. Gastroesophageal reflux disease. She is on omeprazole. 9. Deep vein thrombosis (DVT) prophylaxis. She is on Lovenox. DISPOSITION: Pending improvement in her clinical status. Will continue to follow her closely.
[2017-02-26] MEDS: ERTAPENEM SODIUM 1 GM in NS MINI-BAG PLUS 50 ML IV SCH (21:00)
[2017-02-26] MEDS: oxyBUTYnin *DITROPAN XL* 5 MG TABCR PO SCH (21:35)
[2017-02-26] MEDS: DIVALPROEX 500 MG TAB PO SCH (21:36)
[2017-02-26] MEDS: LATANOPROST 0.005% OPHTH SOLN 2.5 ML OU SCH (21:36)
[2017-02-26 22:00] VITALS: BP 147/68
[2017-02-27 06:00] VITALS: BP 142/80
[2017-02-27 07:48] LABS: MEAN CORPUSCULAR HEMOGLOBIN 31.6 pg (27.0-33.0); MEAN CORPUSCULAR VOLUME 90.1 fl (80.0-96.0); RED CELL DISTRIBUTION WIDTH 13.9 % (11.5-14.5); WHITE BLOOD COUNT 5.9 K/mm3 (4.0-10.0)
[2017-02-27 08:08] LABS: ANION GAP 8 MEQ/L (8-16); BLOOD UREA NITROGEN 16 MG/DL (7-18); CALCIUM LEVEL 9.1 MG/DL (8.8-10.2); CARBON DIOXIDE LEVEL 30 MEQ/L (21-32); CHLORIDE LEVEL 102 MEQ/L (98-107); CREATININE FOR GFR 0.67 MG/DL (0.55-1.02); GLOMERULAR FILTRATION RATE > 60.0 (>32); GLUCOSE, FASTING 92 MG/DL (83-110); POTASSIUM SERUM 3.7 MEQ/L (3.5-5.1); SODIUM LEVEL 140 MEQ/L (136-145)
[2017-02-27] MEDS: DIGOXIN 0.125 MG TAB PO SCH (09:00)
[2017-02-27] MEDS: METOPROLOL TART 50 MG TAB PO SCH (09:00)
[2017-02-27] MEDS: DIVALPROEX 250 MG TAB PO SCH (09:14)
[2017-02-27] MEDS: INDAPAMIDE 1.25MG TABLET PO SCH (09:14)
[2017-02-27] MEDS: ENOXAPARIN 40 MG/0.4 ML SYRINGE (J1650) SC SCH (09:15)
[2017-02-27] MEDS: OMEPRAZOLE 20 MG CAP PO SCH (09:15)
[2017-02-27] MEDS: GABAPENTIN 300 MG CAP PO SCH ×4 (09:15→21:43)
[2017-02-27] MEDS: BRIMONIDINE 0.1% OPHTH SOLN 5 ML OU SCH ×2 (09:15→21:42)
[2017-02-27] MEDS: OMEGA-3 1050MG CAPSULE PO SCH (09:15)
[2017-02-27] MEDS: ASPIRIN 81 MG ENTERIC TAB PO SCH (09:15)
[2017-02-27] MEDS: ENALAPRIL MALEATE 5 MG TAB PO SCH (09:32)
--- NOTE | 2017-02-27 13:21 | IPN ---
DATE OF EXAMINATION: 02/27/2017 SUBJECTIVE: The patient tells me she is feeling well. She has no complaints. OBJECTIVE: VITAL SIGNS: Temperature 98.2, pulse 52, respiratory rate 18, blood pressure (BP) 142/80, oxygen saturation 96% on room air. GENERAL: She is a pleasant, elderly female, sitting in a chair. She is no distress. HEENT: She is wearing glasses. Cranial nerves II-XII are grossly intact. She has moist mucous membranes. No elevation in central venous pressure (CVP). CARDIOVASCULAR EXAM: S1, S2, regular. RESPIRATORY EXAM: Is clear. ABDOMEN: Is benign. EXTREMITIES: No clubbing, cyanosis or edema. LABORATORY STUDIES: WBC 5.9, hemoglobin 14, platelet count 143. Chemistry panel: Sodium 140, potassium 3.7, chloride 102, bicarbonate 30, BUN 16, creatinine 0.6. Microbiology: Urine cultures pending. Blood cultures are negative after 48 hours. ASSESSMENT AND PLAN: This is an 81-year-old female with metabolic encephalopathy. PROBLEMS: 1. Metabolic encephalopathy acute on chronic. The patient has chronic memory impairment felt to be related to underlying dementia but that was acutely worse and weakness of late felt to be related to urinary tract infection. Urine cultures currently pending. She is currently on ertapenem IV. She has a history of extended spectrum beta-lactamase (ESBL). We have obtained urine cultures and will await the results. If she is stable for dispositioning, will likely provide her with one dose of fosfomycin prior to her discharge appears to be of rather uncomplicated cystitis. 2. General weakness and deconditioning. Possibly related to progressive dementia versus acute worsening related to her urinary tract infection will treat and have physical therapy re-evaluate her tomorrow and see if she will be well enough in order to return home with her . If not, she may require usp placement. 3. Atrial fibrillation. She is on metoprolol and digoxin with holding parameters. She is not on any anticoagulation. Will defer to her outpatient providers. 4. Hypertension. Controlled with metoprolol, indapamide, as well as enalapril. 5. Neuropathy. She is on Neurontin. 6. Chronic back pain. She is on Flexeril. 7. Overactive bladder. She is on Ditropan. 8. Gastroesophageal reflux disease. She is on omeprazole. 9. Deep vein thrombosis (DVT) prophylaxis. She is on Lovenox. DISPOSITION: Pending her improvement and clinical status. Will follow with physical therapy (PT). MTDD
[2017-02-27 14:00] VITALS: BP 131/79
[2017-02-27] MEDS: DIVALPROEX 500 MG TAB PO SCH (21:42)
[2017-02-27] MEDS: ERTAPENEM SODIUM 1 GM in NS MINI-BAG PLUS 50 ML IV SCH ×2 (21:42→22:04)
[2017-02-27] MEDS: LATANOPROST 0.005% OPHTH SOLN 2.5 ML OU SCH (21:42)
[2017-02-27] MEDS: oxyBUTYnin *DITROPAN XL* 5 MG TABCR PO SCH (21:43)
[2017-02-27 22:00] VITALS: BP 139/78
[2017-02-28 06:00] VITALS: BP 139/78
[2017-02-28 06:38] LABS: MEAN CORPUSCULAR HEMOGLOBIN 31.7 pg (27.0-33.0); MEAN CORPUSCULAR HGB CONC 34.8 g/dl (32.0-36.5); MEAN CORPUSCULAR VOLUME 90.9 fl (80.0-96.0); WHITE BLOOD COUNT 6.5 K/mm3 (4.0-10.0)
[2017-02-28 07:01] LABS: ANION GAP 9 MEQ/L (8-16); BLOOD UREA NITROGEN 16 MG/DL (7-18); CARBON DIOXIDE LEVEL 28 MEQ/L (21-32); CHLORIDE LEVEL 99 MEQ/L (98-107); CREATININE FOR GFR 0.67 MG/DL (0.55-1.02); GLOMERULAR FILTRATION RATE > 60.0 (>32); GLUCOSE, FASTING 94 MG/DL (83-110); POTASSIUM SERUM 3.6 MEQ/L (3.5-5.1); SODIUM LEVEL 136 MEQ/L (136-145)
[2017-02-28] MEDS: ENALAPRIL MALEATE 5 MG TAB PO SCH (08:16)
[2017-02-28] MEDS: OMEPRAZOLE 20 MG CAP PO SCH (08:17)
[2017-02-28] MEDS: OMEGA-3 1050MG CAPSULE PO SCH (08:17)
[2017-02-28] MEDS: DIVALPROEX 250 MG TAB PO SCH (08:17)
[2017-02-28] MEDS: INDAPAMIDE 1.25MG TABLET PO SCH (08:17)
[2017-02-28] MEDS: GABAPENTIN 300 MG CAP PO SCH ×4 (08:17→20:48)
[2017-02-28] MEDS: METOPROLOL TART 50 MG TAB PO SCH (08:17)
[2017-02-28] MEDS: ENOXAPARIN 40 MG/0.4 ML SYRINGE (J1650) SC SCH (08:18)
[2017-02-28] MEDS: DIGOXIN 0.125 MG TAB PO SCH (08:18)
[2017-02-28] MEDS: BRIMONIDINE 0.1% OPHTH SOLN 5 ML OU SCH ×2 (08:18→20:49)
[2017-02-28] MEDS: ASPIRIN 81 MG ENTERIC TAB PO SCH (08:18)
--- NOTE | 2017-02-28 13:52 | IPN ---
DATE: 02/28/2017 SUBJECTIVE: The patient tells me she is feeling well. She has no complaints. She tells me that she wants to go home. She denies any chest pain, fevers, chills, nausea, vomiting, or diarrhea. OBJECTIVE: VITAL SIGNS: Temperature 98.1, pulse 60, respiratory rate 17, blood pressure (BP) 139/78, oxygen saturation 96% on room air. GENERAL: She is a pleasant, frail, elderly female, sitting in bed in no distress. She is wearing glasses, reading a novel. HEENT: Cranial nerves II through XII are grossly intact. She has moist mucous membranes. No elevation in central venous pressure (CVP). CARDIOVASCULAR EXAM: S1, S2, regular. No additional heart sounds are appreciated. RESPIRATORY EXAM: Is clear. ABDOMEN: Is benign. EXTREMITIES: No clubbing, cyanosis or edema. LABORATORY STUDIES: WBC 6.5, hemoglobin 14.4, platelet count 170. Chemistry panel: Sodium 136, potassium 3.6, chloride 99, bicarbonate 28, BUN 16, creatinine 0.6. Microbiology: Urine culture from 02/24 returned positive for ESBL, sensitive to fosfomycin. ASSESSMENT AND PLAN: This is an 81-year-old female with acute on chronic metabolic encephalopathy, right urinary tract infection and chronic dementia. PROBLEMS: 1. Acute on chronic metabolic encephalopathy secondary to a urinary tract infection and dementia. The patient did have a slow decline for several months and the was worried he would no longer be bale to care for her; however, in the recent days she had been more confused, weak and tired. At the time of presentation to the emergency room, she did have an abnormal urinalysis, and as such she has been on meropenem since she has been here. Today is day 4 of antibiotics as it is sensitive for fosfomycin I will provide her a dose and keep the meropenem on until confirming that can tolerate it and not vomited, but there was no evidence of pyelonephritis, bacteremia or greater sepsis. 2. General weakness and deconditioning. Acutely worse related to urinary tract infection and possibly some dementia as well. Will have physical therapy discuss further with the and patient and family services (PFS) to see if the patient is able to return home where he can care for her versus detention. The patient would like to return home. 3. Atrial fibrillation. She is rate controlled with digoxin and metoprolol. She is not on anticoagulation. Will defer to her outpatient providers given her tenuous gait and weakness lately. Will defer to her outpatient providers given her tenuous gait and weakness lately. I will not discharge her on it at this time for fear of falls. 4. Hypertension. Controlled with metoprolol, indapamide, as well as enalapril. 5. Neuropathy. She is on Neurontin. 6. Chronic back pain. She is on Flexeril. 7. Overactive bladder. She is on Ditropan. 8. Gastroesophageal reflux disease. She is on omeprazole. 9. Deep vein thrombosis (DVT) prophylaxis. She is on Lovenox. DISPOSITION: Pending her clinical improvement.
[2017-02-28 14:00] VITALS: BP 158/80
[2017-02-28] MEDS ORDERED: FOSFOMYCIN TROMETHAMINE 3 GM POWDER PACKET (MONUROL) PO ONE (14:00)
[2017-02-28] MEDS: oxyBUTYnin *DITROPAN XL* 5 MG TABCR PO SCH (20:48)
[2017-02-28] MEDS: ERTAPENEM SODIUM 1 GM in NS MINI-BAG PLUS 50 ML IV SCH (20:48)
[2017-02-28] MEDS: DIVALPROEX 500 MG TAB PO SCH (20:48)
[2017-02-28] MEDS: LATANOPROST 0.005% OPHTH SOLN 2.5 ML OU SCH (20:49)
[2017-02-28 22:00] VITALS: BP 122/65
[2017-03-01 06:00] VITALS: BP 150/84
[2017-03-01 06:35] LABS: ANION GAP 6 MEQ/L (8-16); BLOOD UREA NITROGEN 15 MG/DL (7-18); CALCIUM LEVEL 8.4 MG/DL (8.8-10.2); CARBON DIOXIDE LEVEL 30 MEQ/L (21-32); CHLORIDE LEVEL 97 MEQ/L (98-107); CREATININE FOR GFR 0.64 MG/DL (0.55-1.02); GLOMERULAR FILTRATION RATE > 60.0 (>32); GLUCOSE, FASTING 85 MG/DL (83-110); POTASSIUM SERUM 3.6 MEQ/L (3.5-5.1); SODIUM LEVEL 133 MEQ/L (136-145)
[2017-03-01 06:37] LABS: MEAN CORPUSCULAR HEMOGLOBIN 31.7 pg (27.0-33.0); MEAN CORPUSCULAR HGB CONC 34.7 g/dl (32.0-36.5); MEAN CORPUSCULAR VOLUME 91.4 fl (80.0-96.0); RED CELL DISTRIBUTION WIDTH 13.9 % (11.5-14.5); WHITE BLOOD COUNT 6.9 K/mm3 (4.0-10.0)
[2017-03-01] MEDS: ENOXAPARIN 40 MG/0.4 ML SYRINGE (J1650) SC SCH (09:11)
[2017-03-01] MEDS: GABAPENTIN 300 MG CAP PO SCH ×4 (09:11→21:37)
[2017-03-01] MEDS: ASPIRIN 81 MG ENTERIC TAB PO SCH (09:12)
[2017-03-01] MEDS: OMEPRAZOLE 20 MG CAP PO SCH (09:12)
[2017-03-01] MEDS: DIVALPROEX 250 MG TAB PO SCH (09:12)
[2017-03-01] MEDS: OMEGA-3 1050MG CAPSULE PO SCH (09:12)
[2017-03-01] MEDS: DIGOXIN 0.125 MG TAB PO SCH (09:13)
[2017-03-01] MEDS: METOPROLOL TART 50 MG TAB PO SCH (09:14)
[2017-03-01] MEDS: INDAPAMIDE 1.25MG TABLET PO SCH (09:14)
[2017-03-01] MEDS: BRIMONIDINE 0.1% OPHTH SOLN 5 ML OU SCH ×2 (09:15→21:38)
[2017-03-01] MEDS: ENALAPRIL MALEATE 5 MG TAB PO SCH (09:15)
[2017-03-01 14:00] VITALS: BP 135/77
--- NOTE | 2017-03-01 16:26 | IPN ---
DATE: 03/01/2017 SUBJECTIVE: The patient tells me that she is feeling well today and has no complaints. She feels as though she is ready to go home. She denies any complaints whatsoever. OBJECTIVE: VITAL SIGNS: Temperature 97.7, pulse 59, respiratory rate 17, blood pressure 150/84, oxygen saturation 95% on room air. GENERAL: She is a pleasant, elderly, female sitting in a recliner reading a novel. She does not appear to be in any acute distress. HEENT: She is wearing bifocal lenses. She has moist mucous membranes. No elevation in her central venous pressure (CVP). CARDIOVASCULAR EXAM: S1, S2, regular. RESPIRATORY EXAM: Clear. ABDOMINAL EXAM: Benign. EXTREMITIES: No clubbing, cyanosis, or edema. LABORATORY STUDIES: WBC 6.9, hemoglobin 14.3, platelet count 168. Chemistry panel: Sodium 133, potassium 3.6, chloride 97, bicarbonate 30, BUN 15, creatinine 0.6. Urine culture is positive for extended-spectrum beta-lactamase (ESBL). No new imaging. ASSESSMENT AND PLAN: This is an 81-year-old female with acute on chronic metabolic encephalopathy secondary to urinary tract infection in the setting of dementia. 1. Acute on chronic metabolic encephalopathy. At this time, the patient's states that she has had a slow decline over the last several months to the point that he is concerned that she has dementia, however she was worse lately just prior to the hospitalization. She was found to have an extended-spectrum beta-lactamase (ESBL) urinary tract infection (UTI) and has been on treatment and this does appear to be improving. At this time, she did have 5 days of ertapenem as well as fosfomycin. There was no evidence of pyelonephritis or bacteremia. She did not vomit after the fosfomycin and tolerated it well. Afebrile, no leukocytosis, improving well. 2. General weakness and deconditioning. She is working with physical therapy. They suspect that she may be able to be discharged back to home to her previous living environment within the next 2-3 day session. Will continue to monitor her closely. 3. Atrial fibrillation. Controlled with digoxin and metoprolol. She is not on anticoagulation possibly secondary to her weak gait and propensity for falls. Will defer to her outpatient provider. 4. Hypertension. Controlled with metoprolol, indapamide, and enalapril. 5. Neuropathy. She is on Neurontin. 6. Chronic back pain. She is on Flexeril. 7. Overactive bladder. She is on Ditropan. 8. Gastroesophageal reflux disease. She is on omeprazole. 9. Deep venous thrombosis (DVT) prophylaxis. She is on Lovenox. DISPOSITION: Pending physical therapy (PT), likely to go home within the next 48-72 hours.
[2017-03-01] MEDS: DIVALPROEX 500 MG TAB PO SCH (21:38)
[2017-03-01] MEDS: oxyBUTYnin *DITROPAN XL* 5 MG TABCR PO SCH (21:38)
[2017-03-01] MEDS: LATANOPROST 0.005% OPHTH SOLN 2.5 ML OU SCH (21:38)
[2017-03-01 22:00] VITALS: BP 137/79
[2017-03-02 06:00] VITALS: BP 142/80
[2017-03-02 06:05] LABS: MEAN CORPUSCULAR HEMOGLOBIN 31.2 pg (27.0-33.0); MEAN CORPUSCULAR HGB CONC 34.7 g/dl (32.0-36.5); MEAN CORPUSCULAR VOLUME 89.8 fl (80.0-96.0); RED CELL DISTRIBUTION WIDTH 13.8 % (11.5-14.5); WHITE BLOOD COUNT 6.3 K/mm3 (4.0-10.0)
[2017-03-02 06:36] LABS: ANION GAP 9 MEQ/L (8-16); BLOOD UREA NITROGEN 16 MG/DL (7-18); CALCIUM LEVEL 8.4 MG/DL (8.8-10.2); CARBON DIOXIDE LEVEL 30 MEQ/L (21-32); CHLORIDE LEVEL 97 MEQ/L (98-107); CREATININE FOR GFR 0.66 MG/DL (0.55-1.02); GLOMERULAR FILTRATION RATE > 60.0 (>32); GLUCOSE, FASTING 88 MG/DL (83-110); POTASSIUM SERUM 3.5 MEQ/L (3.5-5.1); SODIUM LEVEL 136 MEQ/L (136-145)
[2017-03-02] MEDS: GABAPENTIN 300 MG CAP PO SCH ×2 (09:15→13:21)
[2017-03-02] MEDS: BRIMONIDINE 0.1% OPHTH SOLN 5 ML OU SCH (09:15)
[2017-03-02] MEDS: ASPIRIN 81 MG ENTERIC TAB PO SCH (09:15)
[2017-03-02] MEDS: OMEGA-3 1050MG CAPSULE PO SCH (09:15)
[2017-03-02] MEDS: OMEPRAZOLE 20 MG CAP PO SCH (09:15)
[2017-03-02] MEDS: DIVALPROEX 250 MG TAB PO SCH (09:15)
[2017-03-02] MEDS: INDAPAMIDE 1.25MG TABLET PO SCH (09:15)
[2017-03-02 09:17] VITALS: BP 142/80
[2017-03-02] MEDS: ENALAPRIL MALEATE 5 MG TAB PO SCH (09:17)
[2017-03-02] MEDS: METOPROLOL TART 50 MG TAB PO SCH (09:21)
[2017-03-02] MEDS: DIGOXIN 0.125 MG TAB PO SCH (09:21)
--- NOTE | 2017-03-02 16:53 | DSES ---
DATE OF ADMISSION: 02/24/2017 DATE OF DISCHARGE: 03/02/2017 No specialists involved in her care. No complications during her stay. DISCHARGE DIAGNOSES: 1. Acute on chronic metabolic encephalopathy. 2. Suspected baseline level of dementia. 3. Extended-spectrum beta-lactamase (ESBL) urinary tract infection. 4. Deconditioning. 5. Atrial fibrillation, not on anticoagulation. 6. Hypertension. 7. Neuropathy. 8. Chronic back pain. 9. Overactive bladder. 10. Gastroesophageal reflux disease (GERD). SUMMARY OF HER PRESENTATION: This is an 81-year-old who presents with weakness and dysuria. She has had increase urinary frequency, suprapubic tenderness, and dysuria. She had a decreasing functional status, worse over months but much worse over days. She was thought to have a urinary tract infection and metabolic encephalopathy. She was admitted to the hospitalist service. Urine culture went on to grow Escherichia (E) coli which was extended-spectrum beta-lactamase (ESBL). She improved slowly during the course of her stay. She completed a course of antibiotics and improved with physical therapy. Today, she was thought ready to go home. is ready to help her return home. Temperature is 98.7, pulse 62, respiratory rate 18, blood pressure 142/80, 94% on room air. Breathing is symmetrical and rested. Heart is distant sounding, irregularly irregular. Abdomen is soft, doughy, nontender. LABORATORY DATA: White cell count most recently was 6.3 and creatinine 0.66. DISCHARGE INSTRUCTIONS: Include the followin. Followup with Dr. Bauer 03/13/2017 as scheduled. 2. Diet and activity as tolerated. Continue: - aspirin 81 mg by mouth daily - Alphagan P one drop in each eye daily - calcium with vitamin D supplement - Coenzyme Q12 supplement - Flexeril 10 mg by mouth three times a day as needed - digoxin 0.125 mg by mouth daily - Depakote 250 mg every morning and 500 mg at bedtime - Enalapril 5 mg by mouth daily - fish oil supplement - Neurontin 600 mg by mouth four times a day - indapamide 1.25 mg by mouth daily - latanoprost one drop in each eye daily at bedtime - metoprolol 50 mg by mouth daily - omeprazole 20 mg by mouth daily - oxybutynin 10 mg by mouth daily at bedtime - potassium supplement home dose
[2017-04-08] MEDS ORDERED: DEPA250T32 PO (18:11)
[2017-04-08] MEDS ORDERED: ALPH0.156 OU (18:13)
[2017-04-27] MEDS ORDERED: VITMTA PO (08:25)
[2017-04-27] MEDS ORDERED: FOLI1TAB4 PO (08:25)
[2017-04-27] MEDS ORDERED: THIA100TA PO (08:25)
== END 2017-03-02 13:26 | disposition home health service (06) | DRG 689 ==
LOC: EDBD 15:34 → M ED 15:34 → M ED INP 19:48 → M MSPAV 22:25
PROVIDERS: ADMIT Internal Medicine; ATTEND Internal Medicine
DX: N39.0 Urinary tract infection, site not specified (principal); G93.41 Metabolic encephalopathy; I10 Essential (primary) hypertension; K21.9 Gastro-esophageal reflux disease without esophagitis; I48.91 Unspecified atrial fibrillation; G62.9 Polyneuropathy, unspecified; N32.81 Overactive bladder; R53.1 Weakness; M54.9 Dorsalgia, unspecified; F03.90 Unspecified dementia, unspecified severity, without behavioral disturbance, psychotic disturbance, mood disturbance, and anxiety; Z79.82 Long term (current) use of aspirin; Z79.899 Other long term (current) drug therapy; Z88.8 Allergy status to other drugs, medicaments and biological substances; Z91.048 Other nonmedicinal substance allergy status; Z91.018 Allergy to other foods; Z90.13 Acquired absence of bilateral breasts and nipples; Z90.710 Acquired absence of both cervix and uterus

== ENCOUNTER → 2017-03-09 | Outpatient (REF) | payer MEDICARE ==
[~2017-03-09] MED LIST changes: +ALPH0.156 OU; +CALC600T57 PO; +DIVA500T3 PO; +FOLI1TAB4 PO; +OXYB10TA PO; +THIA100TA PO; +VITMTA PO
[2017-03-09 14:04] LABS: CALCIUM OXALATE CRYSTALS LARGE
== END ==
LOC: M LAB REF 12:27
PROVIDERS: ATTEND Family Medicine
DX: R30.0 Dysuria (principal)

== ENCOUNTER 2017-03-30 15:19 | Emergency (ER) | payer MEDICARE ==
[~2017-03-30] VITALS: Ht 165.1 cm; Wt 59.1 kg
[~2017-03-30 15:19] MED LIST changes: -ALPH0.156 OU; -FOLI1TAB4 PO; -THIA100TA PO; -VITMTA PO
--- NOTE | 2017-03-30 16:10 | REP ---
CT Head without contrast HISTORY: Fall COMPARISON: 02/24/2017 Areas of decreased attenuation are present in the periventricular white matter. This represents small-vessel ischemic disease. There is no intraparenchymal hemorrhage, acute infarct, mass or midline shift. The ventricular system and cortical sulci as well as subarachnoid space in the posterior fossa are dilated consistent with moderate volume loss. There is no extra cerebral collection. There is no fracture. The visualized sinuses are clear. IMPRESSION: 1. Small vessel ischemic disease. 2. Moderate volume loss. Signed by Perry Kidd MD 03/30/2017 04:01 P
[2017-03-30] MEDS ORDERED: LIDOCAINE W/EPINEPHRINE 1% 20ML VIAL As Ordered ONE (16:22)
[2017-03-30] MEDS ORDERED: LIDOCAINE W/EPINEPHRINE 1% 20ML VIAL SC ONE (16:30)
[2017-03-30] MEDS ORDERED: ADACEL/BOOSTRIX VACCINE (DIPHTH/PERTUSS/ACELL/TETANUS)0.5ML SYR (90715) IM ONE (16:30)
[2017-03-30 16:41] VITALS: BP 164/83
--- NOTE | 2017-03-30 16:46 | REP ---
CT CERVICAL SPINE WITHOUT CONTRAST: HISTORY: Fall. COMPARISON: 12/02/2015. There is no acute fracture. Disc bulges are present at the C3-4 through C5-6 levels. A disc bulge with associated osteophyte formation is present at the C6-7 level. There is minimal narrowing of the spinal canal. Uncinate process and or facet hypertrophy are present at the C2-3 through C7-T1 levels. These findings produce minimal to moderate narrowing of the neural foramina. The C5-6 and C6-7 intervertebral discs are decreased in height consistent with disc degeneration. There are 2 mm of anterior subluxation of C4 on 5 and C5 on 6. IMPRESSION: 1. There is no acute fracture. There is cervical spondylosis at the C2-3 through C7-T1 levels. Signed by Perry Kidd MD 03/30/2017 04:48 P
[2017-04-08] MEDS ORDERED: DEPA250T32 PO (18:11)
[2017-04-08] MEDS ORDERED: ALPH0.156 OU (18:13)
[2017-04-27] MEDS ORDERED: FOLI1TAB4 PO (08:25)
[2017-04-27] MEDS ORDERED: THIA100TA PO (08:25)
[2017-04-27] MEDS ORDERED: VITMTA PO (08:25)
== END 2017-03-30 17:19 | disposition home or self-care (01) ==
LOC: EDSEX 15:19 → M ED 15:19 → EDBD 15:19 → M ED 17:19
DX: S01.91XA Laceration without foreign body of unspecified part of head, initial encounter (principal); W01.198A Fall on same level from slipping, tripping and stumbling with subsequent striking against other object, initial encounter; Y92.019 Unspecified place in single-family (private) house as the place of occurrence of the external cause; Y93.89 Activity, other specified; Y99.8 Other external cause status; E78.70 Disorder of bile acid and cholesterol metabolism, unspecified; Z79.82 Long term (current) use of aspirin; Z79.899 Other long term (current) drug therapy; Z88.8 Allergy status to other drugs, medicaments and biological substances; Z91.013 Allergy to seafood; Z91.02 Food additives allergy status; L23.1 Allergic contact dermatitis due to adhesives

== ENCOUNTER → 2017-04-08 | Outpatient (REF) | payer MEDICARE ==
[~2017-04-08] MED LIST changes: +ALPH0.156 OU; +FOLI1TAB4 PO; +THIA100TA PO; +VITMTA PO
== END ==
LOC: M SMT 12:57
PROVIDERS: ATTEND Nurse Practitioner Women's Health
DX: N39.0 Urinary tract infection, site not specified (principal)